=== PATIENT | female | born 1990 | race African-American/Black ===

== ENCOUNTER 2022-11-13 09:45 | Outpatient (REF) | payer OTHER, SELFPAY ==
[2022-11-15 17:49] LABS: Rubeola IgG (Measles) <13.50 AU/mL
[2022-11-16 02:13] LABS: TS Negative Control Passed; TS Panel A 2; TS Panel B 1; TS Positive Control Passed; TSpotTB Negative (Negative)
== END 2022-11-13 09:46 | disposition home or self-care (01) ==
LOC: HO.10HDL 09:45
PROVIDERS: Visit Provider Internal Medicine
DX: Z11.1 Encounter for screening for respiratory tuberculosis (principal); Z78.0 Asymptomatic menopausal state
CPT/HCPCS: 36415; 86481; 86735; 86762; 86765; 86787

== ENCOUNTER 2023-09-05 10:44 | Outpatient (REF) | payer OTHER, SELFPAY ==
[2023-09-05 12:41] LABS: MANUAL DIFF FLAG NO
[2023-09-05 12:46] LABS: Basophils Percent Auto 0.3 % (0-2); Eosinophils Absolute Auto 0.1 X10*3/uL (0.0-0.4); Eosinophils Percent Auto 1.4 % (0-4); Hematocrit 38.8 % (37.0-47.0); Hemoglobin 13.1 g/dl (12.0-16.0); Imm Gran Abs Auto 0.01 X10*3/uL (0.00-0.03); Imm Gran Pct Auto 0.1 % (0.0-0.4); Lymphocytes Absolute Auto 1.7 X10*3/uL (1.2-4.9); Lymphocytes Percent Auto 23.6 % (20-40); Mean Corpuscular HGB Conc 33.8 g/dl (31.0-35.0); Mean Corpuscular Hemoglobin 31.4 pg (27.0-33.0); Mean Platelet Volume 9.9 fL (9.4-12.3); Monocytes Absolute Auto 0.5 X10*3/uL (0.1-1.2); Monocytes Percent Auto 6.5 % (2-11); Neutrophils Absolute Auto 4.8 x10*3/uL (2.0-8.3); Neutrophils Percent Auto 68.1 % (45-73); Platelet Count 307 X10*3/uL (160-400); Red Blood Count 4.17 X10*6/uL (4.20-5.50); Red Cell Distribution Width 11.9 % (11.0-16.0); White Blood Count 7.1 X10*3/uL (4.8-10.8)
[2023-09-05 13:28] LABS: Alanine Aminotransferase 16 U/L (0-31); Albumin Level 4.2 g/dL (3.5-5.0); Alkaline Phosphatase 89 U/L (39-117); Anion Gap 12 (12-20); Aspartate Amino Transferase 16 U/L (5-31); Bilirubin Total 0.6 mg/dL (0.0-1.0); Blood Urea Nitrogen 9 mg/dL (9-16); Calcium 9.2 mg/dL (8.4-10.2); Carbon Dioxide 26 mmol/L (22-29); Chloride 107 mmol/L (96-108); Estimated Glomerular Filt Rate > 60; Glucose Random 79 mg/dL (60-115); Potassium 4.5 mmol/L (3.3-5.1); Sodium 140 mmol/L (135-145); Total Protein 7.3 g/dL (6.5-8.0)
[2023-09-05 14:28] LABS: CT PCR NOT DETECTED (Not Detect.); NG PCR NOT DETECTED (Not Detect.)
[2023-09-08 04:00] LABS: Syphilis Screen Nonreactive (Nonreactive)
[2023-09-08 04:59] LABS: HBS Num1 501.09 mIU/mL (0-7.99); HBc Num1 0.15 S/CO (0.00-0.79); HBsAGNum1 0.31 S/CO (0.00-0.99); HIV AB/AG Nonreactive (Nonreactive); HIV Num 1 0.05 S/CO (0.00-0.99); Hepatitis A Antibody IgM 0.14 Index (0-0.79); Hepatitis B Core Antibody Nonreactive (Nonreactive); Hepatitis B Surface Antigen Negative (Negative); ~HepC Num1 0.11 S/CO (0.00-0.79); ~Hepatitis A Antibody IgM Nonreactive (Nonreactive); ~Hepatitis B Surface Antibody REACTIVE (Nonreactive); ~Hepatitis C Antibody Nonreactive (Nonreactive)
== END 2023-09-05 10:45 | disposition home or self-care (01) ==
LOC: HO.10HDL 10:44
PROVIDERS: Visit Provider Internal Medicine
DX: Z00.00 Encounter for general adult medical examination without abnormal findings (principal); Z11.4 Encounter for screening for human immunodeficiency virus [HIV]; Z11.3 Encounter for screening for infections with a predominantly sexual mode of transmission; R05.9 Cough, unspecified; R74.01 Elevation of levels of liver transaminase levels
CPT/HCPCS: 0353U; 80053; 85025; 86704; 86706; 86709; 86780; 86803; 87340; 87389

== ENCOUNTER 2024-11-24 11:58 | Outpatient (REF) | payer SELFPAY ==
[2024-11-24 13:25] LABS: MANUAL DIFF FLAG NO
--- OUTSIDE RECORDS SUMMARY | 2024-11-24 13:38 | XMS_ITS | Data Portability ---
Author Organization [facility], [address] Address [address] [place] [address] Care Team Providers Care Connection Worker Name Role Phone [facility] Medicine Assessment No assessment recorded. Plan of Treatment Reminders Order Date Submit Date Provider Last Modified By Organization Details Last Modified Time Details Appointments None recorded. Lab rapid flu (A+B) 2022 023 [email or web address] [facility] [address], [address] [place], [address], 10:20:31 Referral None recorded. Procedures None recorded. Surgeries None recorded. Imaging None recorded. Medication Orders Tamiflu 75 mg capsule 2022 023 [email or web address] [facility] #[id number], [address] [place], [address], 10:22:26 prednisone 20 mg tablet 2022 023 ANDIE [facility] #[id number], [address] [place], [address], 10:21:25 Patient TargetsNo targets recorded. Patient Instructions Encounter Date Encounter Id Patient Instructions Last Modified By Organization Details Last Modified Time 08/16/2022 [id number] headache: care instructions [email or web address] Not available 08/16/2022 10:20:31 You have tested positive for the flu (influenza). If prescribed take Tamiflu (oseltamivir). Take Mucinex DM or Robitussin DM as needed for cough and congestion. You can also try Flonase Allergy 2 sprays to each nostril once a day for congestion. You can also try saline spray for stuffy nose. If you do not have high blood pressure or heart problems, you can try Sudafed or similar decongestants for congestion. If you have high blood pressure you can take Coracidin HBP You can take Claritin or Zyrtec as needed for drainage. Take over the counter acetaminophen or ibuprofen as needed for pain, body aches, fever, or chills. You can try throat lozenges or salt water gargles for any sore throat. Your symptoms may take 7-10 days to go away. Drink lots of fluids. Get plenty of rest. Contact us if you have worsening symptoms such as high fever, shortness of breath, inability to keep liquids and solids down, or other worsening symptoms. Contact us if your symptoms fail to improve after 10 days. Get plenty of rest. Drink plenty of fluids. If you have to limit fluids because of a health problem, talk with your doctor before you increase the amount of fluids you drink. Take an yuav-rxa-fcvztfp pain medicine if needed, such as acetaminophen (Tylenol), ibuprofen (Advil, Motrin), or naproxen (Aleve), to relieve fever, headache, and muscle aches. Be safe with medicines. Read and follow all instructions on the label. No one younger than 20 should take aspirin. It has been linked to Husam syndrome, a serious illness. Take any prescribed medicine exactly as directed. Do not smoke. Smoking can make the flu worse. If you need help quitting, talk to your doctor about stop-smoking programs and medicines. These can increase your chances of quitting for good. If the skin around your nose and lips becomes sore, put some petroleum jelly (such as Vaseline) on the area. To ease coughing: Suck on cough drops or plain, hard candy. Try an ydqn-lft-fnvrbmf cough or cold medicine. Read and follow all instructions on the label. Raise your head at night with an extra pillow. This may help you rest if coughing keeps you awake. Not available 08/16/2022 10:21:10 Sinusitis is an infection of the lining of the sinus cavities in your head. Sinusitis often follows a cold. It causes pain and pressure in your head and face. In most cases, sinusitis gets better on its own in 1 to 2 weeks. But some mild symptoms may last for several weeks. Sometimes antibiotics are needed. if you are having problems. It's also a good idea to know your test results and keep a list of the medicines you take. How can you care for yourself at home? Take an zyxj-ywe-zoczbis pain medicine. Avoid Ibuprofen, Aleve and Aspirin if . If the doctor prescribed antibiotics, take them as directed. Do not stop taking them just because you feel better. You need to take the full course of antibiotics. Be careful when taking mcmz-zty-wpeaeys cold or influenza (flu) medicines and Tylenol at the same time. Many of these medicines have acetaminophen, which is Tylenol. Read the labels to make sure that you are not taking more than the recommended dose. Too much acetaminophen (Tylenol) can be harmful. Breathe warm, moist air from a steamy shower, a hot bath, or a sink filled with hot water. Avoid cold, dry air. Using a humidifier in your home may help. Follow the directions for cleaning the machine. Use saline (saltwater) nasal washes. This can help keep your nasal passages open and wash out mucus and bacteria. You can buy saline nose drops at a grocery store or drugstore. Or you can make your own at home by adding 1 teaspoon (5 millilitres) of salt and 1 teaspoon (5 millilitres) of baking soda to 2 cups (500 mL) of distilled water. If you make your own, fill a bulb syringe with the solution, insert the tip into your nostril, and squeeze gently. Blow your nose. Put a hot, wet towel or a warm gel pack on your face 3 or 4 times a day for 5 to 10 minutes each time. Try a decongestant nasal spray like oxymetazoline (Drixoral). Do not use it for more than 3 days in a row. Using it for more than 3 days can make your congestion worse. Not available 08/16/2022 10:21:20 Reason for Referral None Reported. Results Created Date Observation Date Name Description Value Unit Range Abnormal Flag Note LastModifiedBy Organization Detail LastModifiedTime 08/17/19 23 08/16/2022 rapid flu (A+B) Unknown Analyte Normal = Negati ve Not Available [address] [place], [address], 08/16/2022 09:55:06 08/17/19 23 08/16/2022 rapid flu (A+B) Unknown Analyte positi ve Not Available [address] [place], [address], 08/16/2022 09:55:06 08/17/19 23 08/16/2022 rapid flu (A+B) Unknown Analyte Normal = Negati ve Not Available [address] [place], [address], 08/16/2022 09:55:06 08/17/19 23 08/16/2022 rapid flu (A+B) Unknown Analyte negati ve Not Available [address] [place], [address], 08/16/2022 09:55:06 Result Notes None recorded. Problems No Known Problems Procedures Surgical History Date Name Laterality Status Provider Name and Address Organization Details Recorded Time 06/16/19 21 Partial hysterectomy completed CONTRERAS HUTCHISON - [facility] 08/16/2022 09:54:59 Imaging Results None recorded. Procedure Notes None recorded. Medical Equipment None Reported. Allergies Allergen ID Allergen Name Allergen Category Reaction Reaction Severity Criticality Documentation Date Start Date Code Code System Note Provider Name and Address Organization Details Recorded Time [id number] Substance with sulfonami de structure and antibacte rial mechanism of action (substanc e) medicatio n hives Not available Not available 08/16/2022 [id number] SNOMED KIANNA Cheatham - [facility] 09:53:45 Medications Name Sig Start Date Stop Date Status Note LastModified by Organization Details LastModified Time Prenatabs Rx 29 mg iron-1 mg tablet TAKE 1 TABLET BY MOUTH EVERY DAY 08/16 completed Not Available Not Available Not Available prednisone 20 mg tablet TAKE 1 TABLET BY MOUTH TWICE A DAY FOR 5 DAYS. THEN 1 TABLET BY MOUTH DAILY FOR 5 DAYS active Not Available Not Available No t Available mefloquine 250 mg tablet START 2 WEEKS BEFORE AND TILL 4 WEEKS AFTER TRAVEL ORAL WEEKLY DIRECTED BY DR ESPINOZA 08/16 completed Not Available Not Available Not Available amoxicillin 500 mg tablet TAKE 1 TABLET BY MOUTH TWICE A DAY active Not Available Not Available No t Available oseltamivir 75 mg capsule TAKE 1 CAPSULE BY MOUTH TWICE A DAY WITH MEALS FOR 5 DAYS active Not Available Not Available No t Available Vitals Date Recorded Body height Body mass index (BMI) Body weight Respiratory rate Oxygen saturation Oxygen saturation in Arterial blood by Pulse oximetry Heart rate Body temperature Systolic blood pressure Diastolic blood pressure Provider Name and Address Organization Details Last Updated DateTime 3 167.64 cm 18.6 kg/m2 38677.1 2 g 18 /min 100 % 100 % 91 /min 99 [degF] 101 mm[Hg] 66 mm[Hg] CONTRERAS MARTIN [facility] 09:57:01 Social History Question Answer Notes LastModified by [employer] Details LastModified Time Tobacco Smoking Status Never Smoker CONTRERAS bustillos [facility] 08/16/2022 09:54:29 Have You Recently Traveled Abroad? No Information not available 08/16/2022 Sex: Unknown Functional Status Question Answer Note LastModified by [employer] Details LastModified Time Do you use any illicit or recreational drugs? No Information not available 08/16/2022 Do you or have you ever used any other forms of tobacco or nicotine? No Information not available 08/16/2022 What is your level of alcohol consumption? None Information not available 08/16/2022 Mental Status None recorded. Family History Relationship Description Onset Age of this Age Resolved Age Notes LastModified by Organization Details LastModified Time Father No current problems or disability Not available 08/16 09:54:21 Mother No current problems or disability Not available 08/16 09:54:21 Medical History No medical history recorded. Gynecological HistoryNo gynecological history recorded. Obstetrics History GPAL:G 0 P 0 0 0 0 Past Encounters Encounter ID Performer Location Encounter Start Date Encounter Closed Date Diagnosis/Indication Diagnosis SNOMED-CT Code Diagnosis ICD10 Code Diagnosis Note [id number] [address] [place] [address] 09/10/2021 09:04:54 09/10/2021 09:38:16 [id number] [address] [place] [address] 11/19/2020 12:35:52 11/19/2020 13:12:09 [id number] [address] [address] [facility] [place] [address] 08/31/2019 18:00:48 08/31/2019 18:38:13 [id number] [address] [place] [address] 04/01/2021 14:08:41 04/01/2021 14:40:13 [id number] Kye Hernandez NP [address] [place] [address] 08/16/2022 09:14:13 08/16/2022 10:23:51 Influenza caused by Influenza A virus [id number] J09.X2 Health Concerns Section Related Observation LastModified by Organization Detai ls LastModified Time None Recorded Concern Status LastModified by Organization Details LastModified Time None Recorded Advance Directives Directive None Recorded Payers Insurance Date Sequence Insurance Name Policy Number Policy Maloney Covered Member ID Maloney Member ID Guarantor Name 10/16/2022 1 [facility] (MEDICAID REPLACEMENT - O) [id number] José Marmolejo [id number] José Marmolejo Notes Date Note Type Note Provider Name and Address Organization Details Recorded Time 08/16/2022 text/html CongestionReport ed bypatient.Notes:nasal congestion with post nasal drip x 3 days. denies nay fever or fever with chills. no SOB or respiratory distress. Kye Hernandez NP [address] [place], [address], [place] - [facility] 08/16/2022 10:22:37 OBGyn Episode No OBEpisode recorded.
[2024-11-24 13:39] LABS: Basophils Percent Auto 0.5 % (0-2); Eosinophils Percent Auto 0.7 % (0-4); Hematocrit 37.2 % (37.0-47.0); Hemoglobin 12.5 g/dl (12.0-16.0); Imm Gran Abs Auto 0.02 X10*3/uL (0.00-0.03); Imm Gran Pct Auto 0.3 % (0.0-0.4); Lymphocytes Absolute Auto 2.5 X10*3/uL (1.2-4.9); Lymphocytes Percent Auto 41.7 % (20-40); Mean Corpuscular HGB Conc 33.6 g/dl (31.0-35.0); Mean Corpuscular Hemoglobin 31.8 pg (27.0-33.0); Mean Corpuscular Volume 94.7 fL (80.0-98.0); Mean Platelet Volume 10.7 fL (9.4-12.3); Monocytes Absolute Auto 0.5 X10*3/uL (0.1-1.2); Neutrophils Absolute Auto 2.9 x10*3/uL (2.0-8.3); Neutrophils Percent Auto 48.8 % (45-73); Platelet Count 251 X10*3/uL (160-400); Red Blood Count 3.93 X10*6/uL (4.20-5.50); Red Cell Distribution Width 12.2 % (11.0-16.0)
[2024-11-24 13:57] LABS: Alanine Aminotransferase 24 U/L (0-31); Albumin Level 4.8 g/dL (3.5-5.0); Alkaline Phosphatase 72 U/L (39-117); Anion Gap 12 (12-20); Aspartate Amino Transferase 23 U/L (5-31); Bilirubin Total 0.7 mg/dL (0.0-1.0); Blood Urea Nitrogen 11 mg/dL (9-16); Calcium 9.5 mg/dL (8.4-10.2); Carbon Dioxide 23 mmol/L (22-29); Chloride 105 mmol/L (96-108); Estimated Glomerular Filt Rate > 60; Glucose Random 74 mg/dL (60-115); Potassium 3.7 mmol/L (3.3-5.1); Sodium 136 mmol/L (135-145); Total Protein 7.5 g/dL (6.5-8.0)
[2024-11-24 14:21] LABS: Ferritin 34 ng/mL (10-122)
[2024-11-24 15:27] LABS: CT PCR NOT DETECTED (Not Detect.); NG PCR NOT DETECTED (Not Detect.)
[2024-11-25 08:02] LABS: HBc Num1 0.14 S/CO (0.00-0.79); HBsAGNum1 0.47 S/CO (0.00-0.99); HIV AB/AG Nonreactive (Nonreactive); HIV Num 1 0.06 S/CO (0.00-0.99); Hepatitis B Core Antibody Nonreactive (Nonreactive); Hepatitis B Surface Antigen Negative (Negative); ~HepC Num1 0.11 S/CO (0.00-0.79); ~Hepatitis B Surface Antibody REACTIVE (Nonreactive); ~Hepatitis C Antibody Nonreactive (Nonreactive)
[2024-11-27 02:38] LABS: TS Negative Control Passed; TS Panel A 0; TS Panel B 0; TS Positive Control Passed; TSpotTB Negative (Negative)
== END 2024-11-24 11:59 | disposition home or self-care (01) ==
LOC: HO.10HDL 11:58
PROVIDERS: Visit Provider Internal Medicine
DX: Z00.00 Encounter for general adult medical examination without abnormal findings (principal); N89.8 Other specified noninflammatory disorders of vagina; R74.01 Elevation of levels of liver transaminase levels; Z11.1 Encounter for screening for respiratory tuberculosis; Z11.3 Encounter for screening for infections with a predominantly sexual mode of transmission
CPT/HCPCS: 80053; 82728; 85025; 86481; 86704; 86706; 86803; 87340; 87389; 87491; 87591